=== PATIENT | male | born 1975 | race Two or more races ===

== ENCOUNTER 2021-06-29 10:38 | Inpatient (IN) | payer BC, OTHER ==
[~2021-06-29] VITALS: Ht 185.4 cm; Wt 116.0 kg
[2021-06-29] MEDS ORDERED: DexAMETHasone SOD PHOS 10MG/1ML VIAL INJ IV ONE (11:30)
[2021-06-29] MEDS ORDERED: ACETAMINOPHEN 325 MG TAB PO ONE (11:30)
[2021-06-29 11:49] LABS: Basophils # (auto) 0 10 ^3/uL (0-0.2); Basophils % (auto) 0.6 % (0.0-2.0); Eosinophils # (auto) 0 10 ^3/uL (0-0.8); Hematocrit 41.4 % (41.0-53.0); Hemoglobin 14.3 g/dL (13.5-17.5); Lymphocytes # (auto) 0.8 10 ^3/uL (0.4-5.4); Lymphocytes % (auto) 22.8 % (10.0-50.0); Mean Corpuscular Hemoglobin 30.8 pg (28.0-32.0); Mean Corpuscular Hgb Conc. 34.6 g/dL (32.0-36.0); Monocytes # (auto) 0.6 10 ^3/uL (0-1.3); Monocytes % (auto) 16.7 % (0.0-12.0); Neutrophils # (auto) 2.1 10 ^3/uL (1.6-8.6); Neutrophils % (auto) 59.9 % (37.0-80.0); Nucleated Red Blood Cells % 0.3 %; Red Blood Cells 4.65 10^6/uL (4.5-5.90); Red Cell Distribution Width 14.3 % (11.8-14.3); White Blood Cell 3.5 10^3/uL (4.4-10.8)
[2021-06-29 11:59] LABS: INR 1.03 (0.9-1.15); Partial Thromboplastin Time 34.1 sec (23.6-33.0)
[2021-06-29 12:03] LABS: Albumin 3.1 g/dL (3.4-5.0); Calcium 8.3 mg/dL (8.5-10.1); Magnesium 2.7 mg/dL (1.6-2.6); Potassium 3.7 mmol/L (3.5-5.1)
[2021-06-29 12:08] LABS: BUN/Creatinine Ratio 9.3; Bilirubin, Total 0.4 mg/dL (0.2-1.0); Total Protein 7.4 g/dL (6.4-8.2)
[2021-06-29] MEDS ORDERED: IOHEXOL 350 MG/ML 100ML IJ ONE (13:14)
[2021-06-29] MEDS ORDERED: MORPHINE SULFATE INJECTION 2 MG/ML SYRG IV PRN ×3 (14:30→16:30)
[2021-06-29] MEDS ORDERED: NITROGLYCERIN 0.4 MG SL TAB SL PRN ×2 (14:30→16:30)
[2021-06-29] MEDS ORDERED: HCTZ 25 MG TAB PO ONE (16:15)
[2021-06-29] MEDS ORDERED: hydrALAZINE HCL 20 MG/ML VL IV PRN (16:15)
[2021-06-29] MEDS ORDERED: REMDESIVIR PER PHARMACY 0 ML IV SCH (16:15)
[2021-06-29] MEDS ORDERED: ACETAMINOPHEN 500 MG TAB PO PRN (16:15)
[2021-06-29] MEDS ORDERED: ALUM & MAG HYDROX-SIMETH LIQ(MAALOX) 30 ML PO PRN (16:30)
[2021-06-29] MEDS ORDERED: ACETAMINOPHEN 325 MG TAB PO PRN (16:30)
[2021-06-29] MEDS ORDERED: HYDROcodone-ACET 5/325MG TAB PO PRN (16:30)
[2021-06-29] MEDS ORDERED: METOCLOPRAMIDE HCL 5MG/ml INJ 2ml VIAL IV PRN (16:30)
[2021-06-29] MEDS ORDERED: LORazepam 0.5 MG TAB PO PRN (16:30)
[2021-06-29] MEDS ORDERED: DOCUSATE SOD 100 MG CAP PO PRN (16:30)
[2021-06-29 16:52] LABS: Cholesterol 113 mg/dL (< 200)
[2021-06-29 16:55] LABS: HDL Cholesterol 33 mg/dL (40-59); LDL Cholesterol 61 mg/dL (< 100); Triglycerides 119 mg/dL (< 150)
[2021-06-29 16:58] LABS: Thyroid Stimulating Hormone 1.7 uIU/mL (0.358-3.74)
[2021-06-29 17:30] LABS: Urine Bacteria NONE SEEN /hpf (None Seen); Urine Blood TRACE /uL (Negative); Urine Specific Gravity 1.023 (1.001-1.035); Urine WBC <1 /hpf (0 - 3)
[2021-06-29 17:40] LABS: Alcohol, Urine < 3.0 mg/dL (0-10); Amphetamine Screen, Urine NEGATIVE (NEGATIVE); Barbiturate Scree,Urine NEGATIVE (NEGATIVE); Benzodiazephine Screen, Urine NEGATIVE (NEGATIVE); Cannabinoid Screen, Urine NEGATIVE (NEGATIVE); Cocaine Screen, Urine NEGATIVE (NEGATIVE); Opiate Scree,Urine NEGATIVE (NEGATIVE); Phencyclidine Screen, Urine NEGATIVE (NEGATIVE)
[2021-06-29] MEDS ORDERED: REMDESIVIR 200 MG in NS 210ml LOADING DOSE ADULT IV ONE (18:00)
[2021-06-29] MEDS: BUDESONIDE (INHALATION) 180 MCG IH IN SCH (18:33)
[2021-06-29] MEDS: ALBUTEROL SULF HFA 90MCG INH 200DOSE IN PRN (20:18)
[2021-06-29 22:00] VITALS: BP 132/92
[2021-06-29] MEDS: DOXYCYCLINE 100MG/250ML 250 ML IV SCH (23:13)
[2021-06-29] MEDS: ENOXAPARIN SOD 40 MG/0.4 ML SYRINGE SC SCH (23:14)
[2021-06-29] MEDS: ATORVASTATIN 20 MG TAB PO SCH (23:14)
[2021-06-30 00:50] VITALS: BP 146/93
[2021-06-30 05:00] VITALS: BP 135/80
[2021-06-30] MEDS: BUDESONIDE (INHALATION) 180 MCG IH IN SCH ×2 (05:53→22:59)
[2021-06-30] MEDS: ALBUTEROL SULF HFA 90MCG INH 200DOSE IN PRN (05:54)
[2021-06-30] MEDS: IVERMECTIN 3 MG TAB PO SCH (08:21)
[2021-06-30 08:32] LABS: Calcium 8.6 mg/dL (8.5-10.1); Hematocrit 42.4 % (41.0-53.0); Hemoglobin 14.4 g/dL (13.5-17.5); Mean Corpuscular Hemoglobin 30.4 pg (28.0-32.0); Mean Corpuscular Hgb Conc. 34.1 g/dL (32.0-36.0); Mean Corpuscular Volume 89.3 fL (80.0-100.0); Potassium 3.9 mmol/L (3.5-5.1); Red Blood Cells 4.75 10^6/uL (4.5-5.90); Red Cell Distribution Width 14.8 % (11.8-14.3); White Blood Cell 3.2 10^3/uL (4.4-10.8)
[2021-06-30 08:34] LABS: INR 0.98 (0.9-1.15); Partial Thromboplastin Time 32.4 sec (23.6-33.0)
[2021-06-30 08:38] LABS: BUN/Creatinine Ratio 16.5; Bilirubin, Total 0.4 mg/dL (0.2-1.0); Phosphorus 2.6 mg/dL (2.5-4.90); Total Protein 7.4 g/dL (6.4-8.2); Uric Acid 4.1 mg/dL (3.5-7.2)
[2021-06-30 08:45] LABS: Basophils % (manual) 0 (0.0-2.0); Blast Cells 0; Eosinophils % (manual) 0 (0-7); Metamyelocytes % 0; Myelocytes % 0; Promyelocytes % 0; Reactive Lymphocytes 0
[2021-06-30 09:00] VITALS: BP 138/89
[2021-06-30] MEDS: DOXYCYCLINE 100MG/250ML 250 ML IV SCH ×2 (09:42→22:26)
[2021-06-30] MEDS: ZINC SULFATE 220mg CAP or TAB PO SCH (09:42)
[2021-06-30] MEDS: DexAMETHasone SOD PHOS 10MG/1ML VIAL INJ IV SCH (09:42)
[2021-06-30] MEDS: ASPirin 81 mg TAB PO SCH (09:42)
[2021-06-30] MEDS: HCTZ 25 MG TAB PO SCH (09:43)
[2021-06-30] MEDS: CHOLECALCIFEROL (VITD3) 2,000 UNIT CAP/TAB PO SCH (09:44)
[2021-06-30] MEDS: ENOXAPARIN SOD 40 MG/0.4 ML SYRINGE SC SCH ×2 (09:44→22:27)
[2021-06-30] MEDS: ASCORBIC ACID 1,000 MG TAB PO SCH (09:44)
[2021-06-30] MEDS: FAMOTIDINE 20 MG TAB PO SCH (12:08)
[2021-06-30 12:24] LABS: Band Neutrophils % (manual) 3; Lymphocytes % (manual) 19 (10.0-50.0); Monocytes % (manual) 12 (0-12)
[2021-06-30 13:00] VITALS: BP 141/94
[2021-06-30] MEDS ORDERED: REMDESIVIR 100mg 100 MG in SODIUM CHL 0.9% 230 ML IV SCH (15:00)
[2021-06-30 17:00] VITALS: BP 144/89
[2021-06-30 22:00] VITALS: BP 148/78
[2021-06-30] MEDS: ATORVASTATIN 20 MG TAB PO SCH (22:26)
[2021-07-01] MEDS: ALBUTEROL SULF HFA 90MCG INH 200DOSE IN PRN ×2 (00:44→07:58)
[2021-07-01 05:00] VITALS: BP 151/92
[2021-07-01] MEDS: BUDESONIDE (INHALATION) 180 MCG IH IN SCH (07:58)
[2021-07-01 08:27] LABS: Potassium 3.8 mmol/L (3.5-5.1)
[2021-07-01 08:37] LABS: BUN/Creatinine Ratio 26.3; Bilirubin, Total 0.3 mg/dL (0.2-1.0); Calcium 8.5 mg/dL (8.5-10.1); Magnesium 3.1 mg/dL (1.6-2.6); Total Protein 6.5 g/dL (6.4-8.2)
[2021-07-01 08:41] VITALS: BP 137/88
[2021-07-01 08:46] LABS: Basophils # (auto) 0 10 ^3/uL (0-0.2); Basophils % (auto) 0.6 % (0.0-2.0); Eosinophils # (auto) 0 10 ^3/uL (0-0.8); Eosinophils % (auto) 0.1 % (0.0-7.0); Hematocrit 41.6 % (41.0-53.0); Hemoglobin 14.2 g/dL (13.5-17.5); Lymphocytes # (auto) 0.9 10 ^3/uL (0.4-5.4); Lymphocytes % (auto) 15.8 % (10.0-50.0); Mean Corpuscular Hemoglobin 30.7 pg (28.0-32.0); Mean Corpuscular Hgb Conc. 34.2 g/dL (32.0-36.0); Mean Corpuscular Volume 89.8 fL (80.0-100.0); Neutrophils # (auto) 3.6 10 ^3/uL (1.6-8.6); Neutrophils % (auto) 65.1 % (37.0-80.0); Nucleated Red Blood Cells % 0.4 %; Red Blood Cells 4.63 10^6/uL (4.5-5.90); Red Cell Distribution Width 14.8 % (11.8-14.3); White Blood Cell 5.5 10^3/uL (4.4-10.8)
[2021-07-01 08:49] LABS: Monocytes % (auto) 18.4 % (0.0-12.0)
[2021-07-01] MEDS: DexAMETHasone SOD PHOS 10MG/1ML VIAL INJ IV SCH (09:46)
[2021-07-01] MEDS: DOXYCYCLINE 100MG/250ML 250 ML IV SCH (09:46)
[2021-07-01] MEDS: ENOXAPARIN SOD 40 MG/0.4 ML SYRINGE SC SCH (09:47)
[2021-07-01] MEDS: ASPirin 81 mg TAB PO SCH (09:47)
[2021-07-01] MEDS: ASCORBIC ACID 1,000 MG TAB PO SCH (09:48)
[2021-07-01] MEDS: IVERMECTIN 3 MG TAB PO SCH (09:48)
[2021-07-01] MEDS: CHOLECALCIFEROL (VITD3) 2,000 UNIT CAP/TAB PO SCH (09:48)
[2021-07-01] MEDS: ZINC SULFATE 220mg CAP or TAB PO SCH (09:49)
[2021-07-01] MEDS: FAMOTIDINE 20 MG TAB PO SCH (09:49)
[2021-07-01] MEDS: HCTZ 25 MG TAB PO SCH (09:50)
[2021-07-01] MEDS ORDERED: ALBUAER3 IN (12:02)
[2021-07-01] MEDS ORDERED: AZITTAB PO (12:02)
[2021-07-01 12:37] VITALS: BP 154/100
[2021-07-01 13:24] VITALS: BP 145/99
== END 2021-07-01 15:15 | disposition home or self-care (01) | DRG 177 ==
LOC: ER 10:38 → TELE 14:30 → TELE-EAST 20:15
PROVIDERS: ADMIT Hospitalist; ATTEND Internal Medicine
PROC: XW033E5 Introduction of Remdesivir Anti-infective into Peripheral Vein, Percutaneous Approach, New Technology Group 5 (ICD-10-PCS; principal; 2021-06-29)
DX: U07.1 COVID-19 (principal); J12.82 Pneumonia due to coronavirus disease 2019; J96.01 Acute respiratory failure with hypoxia; Z23 Encounter for immunization; E78.5 Hyperlipidemia, unspecified; E66.01 Morbid (severe) obesity due to excess calories; D89.839 Cytokine release syndrome, grade unspecified; E88.09 Other disorders of plasma-protein metabolism, not elsewhere classified; E88.81 Metabolic syndrome and other insulin resistance; I10 Essential (primary) hypertension; R53.81 Other malaise; R74.01 Elevation of levels of liver transaminase levels; Z68.33 Body mass index [BMI] 33.0-33.9, adult
CPT/HCPCS: 36415; 36600; 71045; 71275; 80053; 80061; 80307; 81001; 82306; 82728; 82805; 83036; 83605; 83615; 83735; 83880; 84100; 84443; 84484; 84550; 85007; 85025; 85027; 85379; 85610; 85730; 86141; 87040; 87086; 87426; 87804; 93005; 94640; 96365; 96375; G0378; J1100; J3490

== ENCOUNTER 2021-10-09 13:04 | Emergency (ER) | payer OTHER ==
[~2021-10-09] VITALS: Ht 185.4 cm; Wt 104.3 kg
[~2021-10-09 13:04] MED LIST: ALBUAER3 IN; AZITTAB PO
[2021-10-09] MEDS ORDERED: SULF800T7 PO ×2 (17:07→17:24)
[2021-10-09] MEDS ORDERED: LIDOCAINE 1%HCL (LOCAL ANESTH) 10 ML MDV ONE (17:21)
[2021-10-09] MEDS ORDERED: ACET-1158 PO (17:24)
[2021-10-09 17:41] VITALS: BP 171/101
[2021-10-09] MEDS ORDERED: cefTRIAXone SOD 1,000 MG VL IM ONE (17:45)
== END 2021-10-09 18:25 | disposition home or self-care (01) ==
LOC: ER 13:04
DX: L03.012 Cellulitis of left finger (principal); I10 Essential (primary) hypertension
CPT/HCPCS: 10060; 96372; 99283; J0696; J2001

== ENCOUNTER 2024-05-06 13:05 | Inpatient (IN) | payer MEDICAID, OTHER ==
[~2024-05-06] VITALS: Ht 182.9 cm; Wt 117.0 kg
[~2024-05-06 13:05] MED LIST changes: +ACET500T58 PO; +SULF800T23 PO
--- NOTE | 2024-05-06 13:26 | ED.PDOC ---
History of Present Illness HPI Comments HPI: Poor Historian. 49 y.o male presents to the ED for an evaluation of HTN. Patient reports he went to get a regular physical and blood pressure read high. Patient is currently as ymptomatic but presents today to get evaluated for his blood pressure as he stated no history of HTN or any mediation use at this time. Patient denies any use of drugs. Patient denies any allergies Vital Signs BP: 240/141 on left arm and 239/153 on right arm HR: 84 Temp: 97.7 F SPO2: 97% RA RR: 16 Past medical history: Herron's Palsy Past surgical history: Denies REVIEW OF SYSTEMS: CONSTITUTIONAL: Denies acute: fever, diaphoresis, chills, generalized weakness. HEAD: Denies acute: headache, photophobia Eyes: Denies acute: Double vision, vision loss, eye pain, eye discharge. EARS: Denies acute: tinnitus, hearing loss, ear discharge, ear pain, THROAT: Denies acute: sore throat, swelling, difficulty swallowing , pain with swallowing, change in voice. NECK: Denies acute: neck pain, neck swelling, stiff neck. HEART: Denies acute : chest pain, palpitations, LUNGS: Denies acute: SOB, wheezing, cough, hemoptysis ABDOMEN: Denies acute: abdominal pain, Nausea, Vomiting, diarrhea, melena , hematemesis, hematochezia SKIN: Denies acute: rash, redness, lesions, itchiness. EXTREMITIES: Denies acute: calf pain, numbness, tingling, weakness, denies pain in extremity. Denies acute: Low back pain. Neuro: Denies acute: focal neurological deficit, motor or sensory focal neurological deficit, tremors, seizure like activity, confusion, dizziness, change in mental status, loss of bowel or bladder function, cauda equina like symptoms. : Denies acute: dysuria, hematuria, flank pain, increase in urinary frequency. PSYCH: Denies acute: hallucination, suicidal ideation, homicidal ideation. PHYSICAL EXAM: General: no acute distress, awake and alert. Head: normocephalic, atraumatic. Neck: supple, trachea is midline, no swelling. Throat: Normal phonation. Eyes:, no erythema, no purulent discharge, no proptosis, no icterus. Heart: regular rate, regular rhythm, no significant murmur appreciated. Lungs: no apparent respiratory distress, Able to speak in full sentences. No wheezing, no rhonchi, no crackles. No stridors Clear to auscultation bilaterally. Abdomen: non tender to palpation, non distended, soft, no guarding, no rebound, + bowel sounds. Neuro: Awake, Alert, oriented to name, self, situation, follows commands GCS=15. Speech is normal. Skin: no petechia, no purpura, no cyanosis, non-pale, not jaundice. Lower extremities: --no - Pitting edema no deformity, no focal swelling, no calf TTP. Makes eye contact. moves all four extremities. Face: no apparent facial droop. Ambulating in the ED independently. Time Seen by MD: 13:20 Primary Care Provider: NONE Reviewed Notes: Nurses Notes, Allergies Allergies: Coded Allergies: NO KNOWN ALLERGIES (Unverified , 06/29/21) Home Meds Active Scripts Acetaminophen (Acetaminophen) 500 Mg Tab, 500 MG PO QIDP, #30 TAB 0 Refills Prov:FORD ALCOCER 10/09/21 Sulfamethoxazole W/Trimethopri (Trimethoprim/Sulfamethoxa) 1 Tab Tab, 1 TAB PO BID for 7 Days, #14 TAB 0 Refills Prov:FORD ALCOCER 10/09/21 Azithromycin (Zithromax Z-Kenny) 250 Mg Tab, 250 MG PO UD for 5 Days, #6 TAB Prov:EAMON JAIN HEDIS COORDINATOR 07/01/21 Albuterol Sulfate (VENTOLIN MDI) 90 Mcg Ih, 180 MCG IN TIDPRN PRN for 30 Days, #1 INH Prov:EAMON JAIN HEDIS COORDINATOR 07/01/21 Information Source: Patient Mode of Arrival: Ambulatory Past Medical History Past Medical History (Other): Herron's palsy Surgical History: Denies all surgeries Family History Family History: Unknown Social History Smoker: Non-Smoker Alcohol: Denies ETOH Use Drugs: Denies Drug Use Lives In: Home Was a procedure done? Was a procedure done?: No Differential Dx Considerations may include: DDX include renal disease, thyroid disease, electrolyte abnormality, increased salt intake, medications non-compliance, undiagnosed HTN, Hypertensive crisis, hypertensive urgency., drug toxicity. X-Ray, Labs, Meds, VS Vital Signs Date Time Temp Pulse Resp B/P (MAP) Pulse Ox O2 Delivery O2 Flow Rate FiO2 05/06/24 23:00 94 12 197/111 (139) 96 05/06/24 21:40 82 205/123 05/06/24 21:00 84 16 205/123 (150) 99 05/06/24 20:08 213/120 05/06/24 20:00 76 16 213/120 (151) 98 05/06/24 16:45 202/131 05/06/24 15:26 201/128 05/06/24 15:26 75 16 201/128 (152) 99 206/126 (152) 05/06/24 14:36 219/143 05/06/24 14:22 219/143 05/06/24 14:18 74 17 219/143 (168) 98 05/06/24 14:18 78 16 219/143 (168) 99 05/06/24 13:40 84 17 98 Room Air 05/06/24 13:40 233/127 05/06/24 13:40 98.4 84 17 233/127 (162) 98 98.4 05/06/24 13:33 97.7 84 16 239/153 (181) 97 Lab Test 05/06/24 16:34 05/06/24 15:11 05/06/24 13:43 05/06/24 13:40 Range/Units Troponin I High Sensitivity 17 15 16 </=54 ng/L Urine Color Colorless Yellow Urine Clarity Clear Clear Urine pH 7.0 5.0-9.0 Urine Specific [place] 1.011 1.001-1.035 Urine Protein Negative Negative Urine Ketones Negative Negative Urine Blood Negative Negative /uL Urine Nitrite Negative Negative Urine Bilirubin Negative Negative Urine Urobilinogen Normal Negative mg/dL Urine Leukocyte Esterase Negative Negative /uL Urine RBC 1 0 - 3 /hpf Urine WBC <1 0 - 3 /hpf Urine Squamous Epithelial Cells Few <5 /hpf Urine Bacteria None seen None Seen /hpf Urine Glucose Trace Normal mg/dL Urine Opiates Screen Neg NEGATIVE Urine Fentanyl Screen Neg NEGATIVE Urine Barbiturates Screen Neg NEGATIVE Urine Phencyclidine Screen Neg NEGATIVE Urine Amphetamines Screen Neg NEGATIVE Urine Benzodiazepines Screen Neg NEGATIVE Urine Cocaine Screen Neg NEGATIVE Urine Cannabinoids Screen Neg NEGATIVE White Blood Count 5.4 4.4-10.8 10^3/uL Red Blood Count 4.58 4.5-5.90 10^6/uL Hemoglobin 14.3 13.5-17.5 g/dL Hematocrit 42.2 41.0-53.0 % Mean Corpuscular Volume 92.0 80.0-100.0 fL Mean Corpuscular Hemoglobin 31.2 28.0-32.0 pg Mean Corpuscular Hemoglobin Concent 33.9 32.0-36.0 g/dL Red Cell Distribution Width 14.8 H 11.8-14.3 % Platelet Count 262 140-450 10^3/uL Mean Platelet Volume 9.3 6.9-10.8 fL Neutrophils (%) (Auto) 52.1 37.0-80.0 % Lymphocytes (%) (Auto) 35.2 10.0-50.0 % Monocytes (%) (Auto) 10.8 0.0-12.0 % Eosinophils (%) (Auto) 1.1 0.0-7.0 % Basophils (%) (Auto) 0.8 0.0-2.0 % Neutrophils # (Auto) 2.8 1.6-8.6 10 ^3/uL Lymphocytes # (Auto) 1.9 0.4-5.4 10 ^3/uL Monocytes # (Auto) 0.6 0-1.3 10 ^3/uL Eosinophils # (Auto) 0.1 0-0.8 10 ^3/uL Basophils # (Auto) 0 0-0.2 10 ^3/uL Nucleated Red Blood Cells 0.3 % Sodium Level 141 136-145 mmol/L Potassium Level 4.0 3.5-5.1 mmol/L Chloride Level 108 H 98-107 mmol/L Carbon Dioxide Level 29 20-31 mmol/L Anion Gap 4 L 5-15 Blood Urea Nitrogen 19 9-23 mg/dL Creatinine 1.35 H 0.700-1.30 mg/dL Glomerular Filtration Rate Calc 64 >90 mL/min BUN/Creatinine Ratio 14.1 10.0-20.0 Serum Glucose 109 H 74-106 mg/dL Calcium Level 9.9 8.7-10.4 mg/dL Total Bilirubin 0.3 0.2-1.0 mg/dL Aspartate Amino Transferase (AST) 18 13-40 U/L Alanine Aminotransferase (ALT) 26 7-40 U/L Alkaline Phosphatase 136 H 46-116 U/L B-Type Natriuretic Peptide 22.48 0-100 pg/mL Total Protein 6.8 5.7-8.2 g/dL Albumin 4.4 3.2-4.8 g/dL Current Medications Medications (Trade) Dose Ordered Sig/Elizabeth Route Start Time Stop Time Status Last Admin Nicardipine HCl 250 ml @ 50 mls/hr Q5H IV 05/06/24 20:45 05/07/24 06:27 DC 05/07/24 02:15 Labetalol HCl (Labetalol HCl) 5 mg ONCE ONCE IV 05/06/24 21:15 05/06/24 21:20 DC 05/06/24 21:40 Hydralazine HCl (Apresoline Injection) 10 mg Q6HP PRN IV 05/06/24 22:30 05/07/24 11:14 Clonidine HCl (Catapres Tablet) 0.2 mg Q6HP PRN PO 05/06/24 22:30 05/07/24 12:02 [place] [id number] Ph: [phone] DIAGNOSTIC IMAGING Diagnostic Imaging Report : [id number] Signed PATIENT: ALLAN COOLEY ACCT: [id number] UNIT: [id number] : 1975 LOC: ER ROOM / BED: / AGE / SEX: 49 / M ADM STATUS: REG ER SERVICE 1319 ORDERING PHYSICIAN: HENRY BROCK DO PROCEDURE(s): HWOCT - HEAD WITHOUT CONTRAST REASON: htn crisis ORDER NUMBER(s): [id number], ACCESSION NUMBER(s): [id number] EXAM: CT HEAD WITHOUT CONTRAST HISTORY: htn crisis COMPARISON: CT ANGIO CHEST CONTRAST on DOS: 06/29/21 TECHNIQUE: Axial images of the head were obtained and reformatted in coronal and sagittal planes. All CT scans at this medical facility are performed using dose modulation techniques as appropriate to a performed exam including the following: Automated exposure control was utilized; adjustment of the MA and/or KV according to patient size; and use of iterative reconstruction technique. CT Dose: CTDI volume is 60.6 mGy. Dose-length product is 1092.55 mGy*cm FINDINGS: There is no evidence of acute intracranial hemorrhage, mass, mass effect midline shift. There is no hydrocephalus or extra-axial fluid collection. Dias-white matter differentiation is maintained.. The visualized paranasal sinuses and mastoid air cells are clear. The calvarium is intact. IMPRESSION: 1. No acute intracranial process. HS:Y ATED BY: AMAN SOTOMAYOR MD DICTATED DATE/TIME: 05/06/241356 SIGNED BY: AMAN SOTOMAYOR MD SIGNED DATE/TIME: 05/06/24 135 CC: [place] [id number] Ph: [phone] DIAGNOSTIC IMAGING Diagnostic Imaging Report : [id number] Signed PATIENT: ALLAN COOLEY ACCT: [id number] UNIT: [id number] : 1975 LOC: ER ROOM / BED: / AGE / SEX: 49 / M ADM STATUS: REG ER SERVICE 1319 ORDERING PHYSICIAN: HENRY BROCK DO PROCEDURE(s): CXRP - CHEST PORTABLE REASON: htn crisis ORDER NUMBER(s): [id number], ACCESSION NUMBER(s): [id number] EXAM: XY CHEST PORTABLE TECHNIQUE: Single frontal chest radiograph CLINICAL HISTORY: htn crisis COMPARISON: CHEST PORTABLE on DOS: 06/30/21, CHEST PORTABLE on DOS: 06/29/21 Findings/Impression: Frontal chest radiograph demonstrates no acute osseous or superficial soft tissue abnormalities. The trachea is midline. The cardiac silhouette and mediastinum are within normal limits. No pneumothorax, pleural effusions, or consolidations. ATED BY: VERONICA CARRANZA DO DICTATED DATE/TIME: 05/06/241352 SIGNED BY: VERONICA CARRANZA DO SIGNED DATE/TIME: 05/06/241352 CC: Time of 1ST Reevaluation: 13:23 Reevaluation 1ST: Unchanged Patient Education/Counseling: Diagnosis, Treatment Family Education/Counseling: No Family Present Comments Patient presented with the above HPI.---hypertensive crisis---workup was initiated. patient was found with the above mentioned diagnosis. Patient was given: Labetalol, nitroglycerin, hydralazine,. Patient continued to be hypertensive. Patient was started on a nicardipine drip Patient ED course and VS have been stabilized. Patient has been reassessed in the ED and remained in a stable condition. Pertinent incidental findings were discussed with the patient and/or family. Patient/family voices understanding and is agreeable with plan. Patient has been observed in the ED adequate length of time to insure improvement/stability. patient was admitted to the medicine team for further evaluation and treatment of their presentation. All the reports of any imaging studies that were ordered by myself were reviewed by myself. Departure 1 Departure Time of Disposition: 20:42 Impression: Primary Impression: Hypertensive crisis Disposition: ADMITTED INPATIENT Admit to: Tele Condition: Guarded Discharged With: Self Critical Care Note Critical Care Time?: Yes (55 min-critical care time only) I personally scribed for HENRY BROCK DO ([email or web address]) on 05/06/24 at 13:26. Electronically submitted by Ailyn Ty ([facility]). I personally scribed for HENRY BROCK DO ([email or web address]) on 05/06/24 at 16:28. Electronically submitted by Ailyn Ty ([facility]). I personally scribed for HENRY BROCK DO ([email or web address]) on 05/06/24 at 17:18. Electronically submitted by Ailyn Ty ([facility]). I personally scribed for HENRY BROCK DO ([email or web address]) on 05/06/24 at 20:42. Electronically submitted by Ailyn Ty ([facility]). HENRY BROCK DO May 06, 2024 13:26
[2024-05-06] MEDS: NITROGLYCERIN 0.4 MG SL TAB SL ONE ×2 (13:40→14:36)
--- NOTE | 2024-05-06 13:55 | DVH ---
EXAM: XY CHEST PORTABLE TECHNIQUE: Single frontal chest radiograph CLINICAL HISTORY: htn crisis COMPARISON: CHEST PORTABLE on DOS: 06/30/21, CHEST PORTABLE on DOS: 06/29/21 Findings/Impression: Frontal chest radiograph demonstrates no acute osseous or superficial soft tissue abnormalities. The trachea is midline. The cardiac silhouette and mediastinum are within normal limits. No pneumothorax, pleural effusions, or consolidations.
--- NOTE | 2024-05-06 13:58 | DVH ---
EXAM: CT HEAD WITHOUT CONTRAST HISTORY: htn crisis COMPARISON: CT ANGIO CHEST CONTRAST on DOS: 06/29/21 TECHNIQUE: Axial images of the head were obtained and reformatted in coronal and sagittal planes. All CT scans at this medical facility are performed using dose modulation techniques as appropriate t o a performed exam including the following: Automated exposure control was utilized; adjustment of th e MA and/or KV according to patient size; and use of iterative reconstruction technique. CT Dose: CTDI volume is 60.6 mGy. Dose-length product is 1092.55 mGy*cm FINDINGS: There is no evidence of acute intracranial hemorrhage, mass, mass effect midline shift. There is no h ydrocephalus or extra-axial fluid collection. Dias-white matter differentiation is maintained.. The visualized paranasal sinuses and mastoid air cells are clear. The calvarium is intact. IMPRESSION: 1. No acute intracranial process. HS:Y
[2024-05-06 14:22] LABS: Alanine Aminotransferase 26 U/L (7-40); Albumin 4.4 g/dL (3.2-4.8); Alkaline Phosphatase 136 U/L (46-116); Anion Gap 4 (5-15); Aspartate Aminotransferase 18 U/L (13-40); BUN/Creatinine Ratio 14.1 (10.0-20.0); Basophils # (auto) 0 10 ^3/uL (0-0.2); Basophils % (auto) 0.8 % (0.0-2.0); Blood Urea Nitrogen 19 mg/dL (9-23); Calcium 9.9 mg/dL (8.7-10.4); Carbon Dioxide 29 mmol/L (20-31); Chloride 108 mmol/L (98-107); Eosinophils # (auto) 0.1 10 ^3/uL (0-0.8); Eosinophils % (auto) 1.1 % (0.0-7.0); Glucose 109 mg/dL (74-106); Hematocrit 42.2 % (41.0-53.0); Hemoglobin 14.3 g/dL (13.5-17.5); Lymphocytes # (auto) 1.9 10 ^3/uL (0.4-5.4); Lymphocytes % (auto) 35.2 % (10.0-50.0); Mean Corpuscular Hemoglobin 31.2 pg (28.0-32.0); Mean Corpuscular Hgb Conc. 33.9 g/dL (32.0-36.0); Monocytes # (auto) 0.6 10 ^3/uL (0-1.3); Monocytes % (auto) 10.8 % (0.0-12.0); Neutrophils # (auto) 2.8 10 ^3/uL (1.6-8.6); Neutrophils % (auto) 52.1 % (37.0-80.0); Nucleated Red Blood Cells % 0.3 %; Platelet Count (auto) 262 10^3/uL (140-450); Red Blood Cells 4.58 10^6/uL (4.5-5.90); Red Cell Distribution Width 14.8 % (11.8-14.3); Sodium 141 mmol/L (136-145); Total Protein 6.8 g/dL (5.7-8.2); White Blood Cell 5.4 10^3/uL (4.4-10.8)
[2024-05-06 14:23] LABS: Bilirubin, Total 0.3 mg/dL (0.2-1.0)
[2024-05-06 15:00] LABS: Urine Bacteria None Seen /hpf (None Seen)
[2024-05-06 15:11] LABS: Urine Blood Negative /uL (Negative); Urine Clarity Clear (Clear); Urine Color Colorless (Yellow); Urine Protein, UAD Negative (Negative); Urine Specific Gravity 1.011 (1.001-1.035); Urine Urobilinogen Normal (Negative); Urine WBC <1 /hpf (0 - 3)
[2024-05-06 15:19] LABS: Amphetamine Screen, Urine Neg (NEGATIVE); Barbiturate Scree,Urine Neg (NEGATIVE); Benzodiazephine Screen, Urine Neg (NEGATIVE); Cocaine Screen, Urine Neg (NEGATIVE); Opiate Scree,Urine Neg (NEGATIVE); Phencyclidine Screen, Urine Neg (NEGATIVE)
[2024-05-06 15:20] LABS: Cannabinoid Screen, Urine Neg (NEGATIVE)
[2024-05-06] MEDS: LABETALOL HCL 20 MG/4 ML VL IV ONE ×3 (16:08→21:40)
[2024-05-06] MEDS: hydrALAZINE HCL 20 MG/ML VL IV ONE ×2 (16:45→20:08)
[2024-05-06] MEDS ORDERED: ACETAMINOPHEN 325 MG TAB PO PRN (22:30)
[2024-05-06] MEDS ORDERED: ONDANSETRON HCL 4 MG/2 ML VIAL IV PRN (22:30)
[2024-05-06] MEDS ORDERED: DOCUSATE SOD 100 MG CAP PO PRN (22:30)
[2024-05-06] MEDS ORDERED: HYDROcodone-ACET 5/325MG TAB PO PRN (22:30)
--- NOTE | 2024-05-06 23:04 | DVHHP2 ---
History of Present Illness Reason for Visit: Hypertensive crisis History of Present Illness The patient is a 49-year-old male with past medical history of Herron's palsy and hypertension who presented to [facility] ED with complaint of elevated blood pressure. Patient denies history of hypertension, asymptomatic, but present today with elevated blood pressure, associated headache, not in any medication at this time. Patient was seen and evaluated in the ED, laboratory data shows WBC 5.4, platelets 262, sodium 141, potassium 4.0, BUN 19, creatinine 1.35, glucose 109, BNP 22.48, troponin 16, blood pressure 213/120 trending down to 192/112, heart rate 82, temperature 98.4 F, O2 saturation 99% on room air. Head CT showed no acute intracranial process. Patient was started on nicardipine drip, please see medication orders section in the computer. On my assessment, patient denied chest pain, no dizziness, no palpitation, no shortness of breath, no nausea, no vomiting, no fever, no chills. Patient was admitted for further evaluation and medical management. Past Medical History Herron's Palsy, hypertension Past Surgical History Denies all surgeries Family History Reviewed, noncontributory to the management of this case. Past Social History The patient lives at home, denies smoking, alcohol or illicit drugs abuse. Review of Systems Constitutional: No: Fever, Chills, Sweats, Weakness, Malaise, Other Eyes: No: Pain, Vision change, Conjunctivae inflammation, Eyelid inflammation, Other, Redness ENT: No: Ear pain, Ear discharge, Nose pain, Nose discharge, Nose congestion, Mouth pain, Mouth swelling, Throat pain, Throat swelling, Other Respiratory: No: Cough, Dry, Shortness of breath, SOB with excertion, Wheezing, Hemoptysis, Pleuritic Pain, Sputum, Wheezing, Other Cardiovascular: Other (Hypertension); No: Chest Pain, Palpitations, Orthopnea, Paroxysmal Noc. Dyspnea, Edema, Lt Headedness Gastrointestinal: No: Nausea, Vomiting, Abdominal Pain, Diarrhea, Constipation, Melena, Hematochezia, Other Genitourinary: No Dysuria, No Frequency, No Incontinence, No Hematuria, No Retention, No Other Musculoskeletal: No: other, neck pain, shoulder pain, arm pain, back pain, hand pain, leg pain, foot pain Skin: No: Rash, Lesions, Jaundice, Bruising, Other Neurological: Other (Headache); No: Weakness, Numbness, Incoordination, Change in speech, Confusion, Seizures Allergies: Coded Allergies: NO KNOWN ALLERGIES (Unverified , 06/29/21) Medications Current Medications Medications Dose Ordered Sig/Elizabeth Route Start Time Stop Time Status Last Admin Dose Admin Nicardipine HCl 250 ml @ 50 mls/hr Q5H IV 05/06/24 20:45 Hydralazine HCl 10 mg Q6HP PRN IV 05/06/24 22:30 Clonidine HCl 0.2 mg Q6HP PRN PO 05/06/24 22:30 Metoprolol Tartrate 75 mg BID PO 05/07/24 10:00 Sodium Chloride 10 ml Q8HR IV 05/07/24 06:00 Acetaminophen/ Hydrocodone Bitart 1 tab Q4HP PRN PO 05/06/24 22:30 Ondansetron HCl 4 mg Q4HP PRN IV 05/06/24 22:30 Docusate Sodium 100 mg BIDPRN PRN PO 05/06/24 22:30 Acetaminophen 650 mg Q6HP PRN PO 05/06/24 22:30 Exam Vital Signs Vital Signs Date Time Temp Pulse Resp B/P (MAP) Pulse Ox O2 Delivery O2 Flow Rate FiO2 05/06/24 21:40 82 205/123 05/06/24 21:00 16 99 05/06/24 13:40 Room Air 05/06/24 13:40 98.4 98.4 General Appearance: Alert, Oriented X3, Cooperative, No acute distress HEENT: Atraumatic, PERRLA, EOMI, Mucous membr. moist/pink Respiratory: Clear to auscultation, Normal air movement Cardiovascular: Regular rate, Normal S2, No murmurs Abdominal: Normal bowel sounds, Soft, No tenderness, No hepatospenomegaly, No masses Extremities: No clubbing, No cyanosis, No edema, Normal pulses, No tenderness/swelling Skin: No rashes, No breakdown, No significant lesion Neuro: Normal gait, Normal speech, Strength at 5/5 X4 ext, Normal tone, Sensation intact, Cranial nerves 3-12 NL, Reflexes 2+ Psych/Mental Status: Mental status NL, Mood NL Labs/Xrays Labs Test 05/06/24 16:34 05/06/24 13:43 11/21/24 13:40 Range/Units Troponin I High Sensitivity 17 </=54 ng/L Urine Color Colorless Yellow Urine Clarity Clear Clear Urine pH 7.0 5.0-9.0 Urine Specific [place] 1.011 1.001-1.035 Urine Protein Negative Negative Urine Ketones Negative Negative Urine Blood Negative Negative /uL Urine Nitrite Negative Negative Urine Bilirubin Negative Negative Urine Urobilinogen Normal Negative mg/dL Urine Leukocyte Esterase Negative Negative /uL Urine RBC 1 0 - 3 /hpf Urine WBC <1 0 - 3 /hpf Urine Squamous Epithelial Cells Few <5 /hpf Urine Bacteria None seen None Seen /hpf Urine Glucose Trace Normal mg/dL Urine Opiates Screen Neg NEGATIVE Urine Fentanyl Screen Neg NEGATIVE Urine Barbiturates Screen Neg NEGATIVE Urine Phencyclidine Screen Neg NEGATIVE Urine Amphetamines Screen Neg NEGATIVE Urine Benzodiazepines Screen Neg NEGATIVE Urine Cocaine Screen Neg NEGATIVE Urine Cannabinoids Screen Neg NEGATIVE White Blood Count 5.4 4.4-10.8 10^3/uL Red Blood Count 4.58 4.5-5.90 10^6/uL Hemoglobin 14.3 13.5-17.5 g/dL Hematocrit 42.2 41.0-53.0 % Mean Corpuscular Volume 92.0 80.0-100.0 fL Mean Corpuscular Hemoglobin 31.2 28.0-32.0 pg Mean Corpuscular Hemoglobin Concent 33.9 32.0-36.0 g/dL Red Cell Distribution Width 14.8 H 11.8-14.3 % Platelet Count 262 140-450 10^3/uL Mean Platelet Volume 9.3 6.9-10.8 fL Neutrophils (%) (Auto) 52.1 37.0-80.0 % Lymphocytes (%) (Auto) 35.2 10.0-50.0 % Monocytes (%) (Auto) 10.8 0.0-12.0 % Eosinophils (%) (Auto) 1.1 0.0-7.0 % Basophils (%) (Auto) 0.8 0.0-2.0 % Neutrophils # (Auto) 2.8 1.6-8.6 10 ^3/uL Lymphocytes # (Auto) 1.9 0.4-5.4 10 ^3/uL Monocytes # (Auto) 0.6 0-1.3 10 ^3/uL Eosinophils # (Auto) 0.1 0-0.8 10 ^3/uL Basophils # (Auto) 0 0-0.2 10 ^3/uL Nucleated Red Blood Cells 0.3 % Sodium Level 141 136-145 mmol/L Potassium Level 4.0 3.5-5.1 mmol/L Chloride Level 108 H 98-107 mmol/L Carbon Dioxide Level 29 20-31 mmol/L Anion Gap 4 L 5-15 Blood Urea Nitrogen 19 9-23 mg/dL Creatinine 1.35 H 0.700-1.30 mg/dL Glomerular Filtration Rate Calc 64 >90 mL/min BUN/Creatinine Ratio 14.1 10.0-20.0 Serum Glucose 109 H 74-106 mg/dL Calcium Level 9.9 8.7-10.4 mg/dL Total Bilirubin 0.3 0.2-1.0 mg/dL Aspartate Amino Transferase (AST) 18 13-40 U/L Alanine Aminotransferase (ALT) 26 7-40 U/L Alkaline Phosphatase 136 H 46-116 U/L B-Type Natriuretic Peptide 22.48 0-100 pg/mL Total Protein 6.8 5.7-8.2 g/dL Albumin 4.4 3.2-4.8 g/dL PATIENT: ALLAN COOLEY ACCT: [id number] UNIT: [id number] : 1975 LOC: ER ROOM / BED: / AGE / SEX: 49 / M ADM STATUS: REG ER SERVICE 1319 ORDERING PHYSICIAN: HENRY BROCK DO PROCEDURE(s): HWOCT - HEAD WITHOUT CONTRAST REASON: htn crisis ORDER NUMBER(s): [id number], ACCESSION NUMBER(s): [id number] EXAM: CT HEAD WITHOUT CONTRAST HISTORY: htn crisis COMPARISON: CT ANGIO CHEST CONTRAST on DOS: 06/29/21 TECHNIQUE: Axial images of the head were obtained and reformatted in coronal and sagittal planes. All CT scans at this medical facility are performed using dose modulation techniques as appropriate to a performed exam including the following: Automated exposure control was utilized; adjustment of the MA and/or KV according to patient size; and use of iterative reconstruction technique. CT Dose: CTDI volume is 60.6 mGy. Dose-length product is 1092.55 mGy*cm FINDINGS: There is no evidence of acute intracranial hemorrhage, mass, mass effect midline shift. There is no hydrocephalus or extra-axial fluid collection. Dias-white matter differentiation is maintained.. The visualized paranasal sinuses and mastoid air cells are clear. The calvarium is intact. IMPRESSION: 1. No acute intracranial process. ORDERING PHYSICIAN: HENRY BROCK DO PROCEDURE(s): CXRP - CHEST PORTABLE REASON: htn crisis ORDER NUMBER(s): [id number], ACCESSION NUMBER(s): [id number] EXAM: XY CHEST PORTABLE TECHNIQUE: Single frontal chest radiograph CLINICAL HISTORY: htn crisis COMPARISON: CHEST PORTABLE on DOS: 06/30/21, CHEST PORTABLE on DOS: 06/29/21 Findings/Impression: Frontal chest radiograph demonstrates no acute osseous or superficial soft tissue abnormalities. The trachea is midline. The cardiac silhouette and mediastinum are within normal limits. No pneumothorax, pleural effusions, or consolidations. Assessment/Plan Assessment/Plan Hypertensive crisis Headache Morbid obesity Acute renal injury Plan 1. Admit to telemetry unit 2. Breathing treatment 3. Pain control management 4. Management of fluids and electrolytes 5. Consultation for cardiology/hospitalist 6. Diagnostic tests head CT 7. DVT prophylaxis-on SCDs 8. Repeat labs CBC, CMP in a.m. 9. Continue with current medical management 10. Treatment plan discussed with patient and RN. Patient verbalized understanding. Plan discussed with: Patient, Other (RN) My Orders Orders - NANDO SALDIVAR DNP Procedure Category Date Status Time Hydralazine Injection PHA 05/06/24 In Process (Apresoline Inject 22:30 Clonidine Hcl Tablet PHA 05/06/24 In Process (Catapres Tablet) 22:30 Metoprolol Tartrate PHA 05/07/24 In Process Tablet (Lopressor Ta 10:00 * Cardiology Consult CONS 05/06/24 Transmitted 22:27 Allergies VALERY 05/06/24 In Process 22:27 Code Status CODE 05/06/24 Transmitted 22:27 Sodium Chloride Lock PHA 05/07/24 In Process (Saline Lock Ns) 06:00 Oxygen Per Hour RT 05/06/24 Transmitted 22:27 Hydrocodone-Acet PHA 05/06/24 In Process 5/325mg Tab ([place] 22:30 Ondansetron Hcl PHA 05/06/24 In Process (Zofran) 22:30 Docusate Sodium PHA 05/06/24 In Process Capsule (Colace 22:30 Complete Blood Count LAB 05/07/24 Verified 04:00 Comprehensive LAB 05/07/24 Verified Metabolic Panel 04:00 Cardiac DIET 05/07/24 Transmitted Diet-2gna,Lofat,Lochol Breakfast Condition: Serious VALERY 05/06/24 In Process 22:27 Acetaminophen Tablet PHA 05/06/24 In Process (Tylenol Tablet) 22:30 Bedrest With Bathroom VALERY 05/06/24 In Process Privileg 22:27 Sequential VALERY 05/06/24 In Process Compression Device Problem List: (1) Hypertensive crisis (2) Headache (3) Morbid obesity (4) Acute renal injury Date of Service: May 06, 2024 Billing Provider: NANDO SALDIVAR DNP Common Visit Codes: [id number] INP/OBS CARE (HIGH) NANDO SALDIVAR DNP May 06, 2024 23:04
[2024-05-06] MEDS ORDERED: NITROGLYCERIN 0.4 MG SL TAB SL PRN (23:15)
[2024-05-06] MEDS ORDERED: MORPHINE SULFATE INJ 2 MG/ml SYRG IV PRN (23:15)
[2024-05-07] VITALS: PULSE 82; RESP 18; O2SAT 96
[2024-05-07 04:47] LABS: Basophils # (auto) 0.1 10 ^3/uL (0-0.2); Basophils % (auto) 0.9 % (0.0-2.0); Eosinophils # (auto) 0.1 10 ^3/uL (0-0.8); Eosinophils % (auto) 1.1 % (0.0-7.0); Hemoglobin 14.1 g/dL (13.5-17.5); Lymphocytes # (auto) 1.7 10 ^3/uL (0.4-5.4); Lymphocytes % (auto) 26.9 % (10.0-50.0); Mean Corpuscular Hgb Conc. 33.5 g/dL (32.0-36.0); Mean Corpuscular Volume 92.6 fL (80.0-100.0); Monocytes # (auto) 0.6 10 ^3/uL (0-1.3); Monocytes % (auto) 8.7 % (0.0-12.0); Neutrophils % (auto) 62.4 % (37.0-80.0); Platelet Count (auto) 258 10^3/uL (140-450); Red Blood Cells 4.54 10^6/uL (4.5-5.90); Red Cell Distribution Width 14.6 % (11.8-14.3); White Blood Cell 6.4 10^3/uL (4.4-10.8)
[2024-05-07 05:08] LABS: Alanine Aminotransferase 23 U/L (7-40); Albumin 4.3 g/dL (3.2-4.8); Alkaline Phosphatase 121 U/L (46-116); Anion Gap 9 (5-15); Aspartate Aminotransferase 17 U/L (13-40); BUN/Creatinine Ratio 10.7 (10.0-20.0); Blood Urea Nitrogen 12 mg/dL (9-23); Calcium 9.4 mg/dL (8.7-10.4); Carbon Dioxide 22 mmol/L (20-31); Chloride 107 mmol/L (98-107); Glucose 199 mg/dL (74-106); Potassium 3.3 mmol/L (3.5-5.1); Sodium 138 mmol/L (136-145)
[2024-05-07 05:09] LABS: Bilirubin, Total 0.6 mg/dL (0.2-1.0); Total Protein 6.8 g/dL (5.7-8.2)
[2024-05-07] MEDS: SODIUM CHLOR 0.9% PF (SALINE LOCK) 10ML VIAL/SYR IV SCH (06:24)
[2024-05-07 07:57] VITALS: PULSE 70; RESP 16; O2SAT 96
[2024-05-07 08:53] LABS: Magnesium 2.2 mg/dL (1.6-2.6)
[2024-05-07] MEDS: METOPROLOL TARTRATE 25 MG TAB PO SCH (09:38)
--- NOTE | 2024-05-07 09:42 | DVHINCON2 ---
[facility] 05/07/24 0942: Date Seen: May 07, 2024 Referring Physician FILI Bauman Reason for Consultation Hypertensive urgency History of Present Illness This is a 49-year-old male patient who presents to emergency room with chief complaint of elevated blood pressure. The patient reports that he was at a clinic getting a physical done for a new job when staff at that clinic told him his blood pressure was too high and that he needed to come to the emergency room. Upon emergency room arrival, the patient's blood pressure was noted to be at 240/141. The patient denies any cardiac symptoms. The patient also denies any headache or visual disturbances. No twelve lead electrocardiogram was obtained in the emergency room when the patient was admitted. A twelve lead electrocardiogram was ordered at time of assessment and reveals normal sinus rhythm with nonspecific ST segment depression to inferior leads. Initial troponin level of 16ng/L with flat trend thereafter. Significant past medical history includes hypertension and Herron's palsy. The patient denies taking any antihypertensive medications at home. He states he has not seen a primary care physician in over two years. Past Medical History Past medical history reviewed. No other significant than mentioned above. Past Surgical History Patient denies all previous surgeries Family History: Diabetes mellitus G8 MOTHER Hypertension G8 MOTHER Family History Family history reviewed. Social History Denies the use of tobacco, alcohol or illicit drugs. Allergies: Coded Allergies: NO KNOWN ALLERGIES (Unverified , 06/29/21) Home Meds Active Scripts Acetaminophen (Acetaminophen) 500 Mg Tab, 500 MG PO QIDP, #30 TAB 0 Refills Prov:FORD ALCOCER 10/09/21 Sulfamethoxazole W/Trimethopri (Trimethoprim/Sulfamethoxa) 1 Tab Tab, 1 TAB PO BID for 7 Days, #14 TAB 0 Refills Prov:FORD ALCOCER 10/09/21 Azithromycin (Zithromax Z-Kenny) 250 Mg Tab, 250 MG PO UD for 5 Days, #6 TAB Prov:EAMON JAIN NP 07/01/21 Albuterol Sulfate (VENTOLIN MDI) 90 Mcg Ih, 180 MCG IN TIDPRN PRN for 30 Days, #1 INH Prov:EAMON JAIN SCREEN ROOM OPERATOR 07/01/21 Home Meds Home medications reviewed. Current Medications Current Medications Medications (Trade) Dose Ordered Sig/Elizabeth Route PRN Reason Start Time Stop Time Status Last Admin Nicardipine HCl 250 ml @ 50 mls/hr Q5H IV 05/06/24 20:45 05/07/24 06:27 DC 05/07/24 02:15 Hydralazine HCl (Apresoline Injection) 10 mg Q6HP PRN IV SBP>150 05/06/24 22:30 Clonidine HCl (Catapres Tablet) 0.2 mg Q6HP PRN PO SBP>160 05/06/24 22:30 Metoprolol Tartrate (Lopressor Tablet) 75 mg BID PO 05/07/24 10:00 05/07/24 09:38 Sodium Chloride (Saline Lock Ns) 10 ml Q8HR IV 05/07/24 06:00 05/07/24 06:24 Acetaminophen/ Hydrocodone Bitart ([place] 5/325MG Tab) 1 tab Q4HP PRN PO MODERATE PAIN (4-6 PAIN SCALE) 05/06/24 22:30 Ondansetron HCl (Zofran) 4 mg Q4HP PRN IV NAUSEA / VOMITING 05/06/24 22:30 Docusate Sodium (Colace Capsule) 100 mg BIDPRN PRN PO FOR CONSTIPATION 05/06/24 22:30 Acetaminophen (Tylenol Tablet) 650 mg Q6HP PRN PO PAIN SCALE 1-3 OR TEMP>100.4 05/06/24 22:30 Nitroglycerin (Ntrostat Sublingual) 0.4 mg Q5MINP PRN SL FOR CHEST PAIN 05/06/24 23:15 Morphine Sulfate 2 mg Q30M PRN IV FOR CHEST PAIN 05/06/24 23:15 Review of Systems Constitutional: No symptom reported Ears, Nose, & Throat: No symptom reported Eyes: No symptom reported Neurological: No symptoms reported Pulmonary/Respiratory: No symptoms reported Cardiovascular: No symptom reported Gastrointestinal: No symptom reported Genitourinary: No symptom reported Musculoskeletal: No symptom reported Skin: No symptom reported Psychiatric: No symptom reported Endocrine: No symptom reported Hematologic/Lymphatic: No symptom reported Vital Signs Vital Signs Date Time Temp Pulse Resp B/P (MAP) Pulse Ox O2 Delivery O2 Flow Rate FiO2 05/07/24 09:38 80 175/86 05/07/24 08:00 98.3 16 96 98.3 05/07/24 07:57 Nasal Cannula* 2 28 Physical Exam General Appearance: Cooperative. Obese Pulmonary/Respiratory: Clear, bilateral breaths sounds. Cardiovascular/Chest: Regular rate and rhythm. Peripheral Pulses: 2+ Radial (R). 2+ Radial (L). 2+ Pedal (R). 2+ Pedal (L) Abdominal Exam: Normal bowel sounds. Ankle Exam: Negative ankle edema Lower extremities: Negative lower extremity edema Neuro/Mental Status: A/OX4, coherent. Thoughts/Psych: Normal thought pattern. Appropriate mood and affect. Good judgment and insight. Appearance: No acute distress. Skin Exam: Normal inspection. Normal color. Warm and dry. Labs/Diagnostic Data Labs Test 05/07/24 04:12 05/06/24 16:34 05/06/24 13:43 05/06/24 13:40 Range/Units White Blood Count 6.4 4.4-10.8 10^3/uL Red Blood Count 4.54 4.5-5.90 10^6/uL Hemoglobin 14.1 13.5-17.5 g/dL Hematocrit 42.0 41.0-53.0 % Mean Corpuscular Volume 92.6 80.0-100.0 fL Mean Corpuscular Hemoglobin 31.0 28.0-32.0 pg Mean Corpuscular Hemoglobin Concent 33.5 32.0-36.0 g/dL Red Cell Distribution Width 14.6 H 11.8-14.3 % Platelet Count 258 140-450 10^3/uL Mean Platelet Volume 9.2 6.9-10.8 fL Neutrophils (%) (Auto) 62.4 37.0-80.0 % Lymphocytes (%) (Auto) 26.9 10.0-50.0 % Monocytes (%) (Auto) 8.7 0.0-12.0 % Eosinophils (%) (Auto) 1.1 0.0-7.0 % Basophils (%) (Auto) 0.9 0.0-2.0 % Neutrophils # (Auto) 4.0 1.6-8.6 10 ^3/uL Lymphocytes # (Auto) 1.7 0.4-5.4 10 ^3/uL Monocytes # (Auto) 0.6 0-1.3 10 ^3/uL Eosinophils # (Auto) 0.1 0-0.8 10 ^3/uL Basophils # (Auto) 0.1 0-0.2 10 ^3/uL Nucleated Red Blood Cells 0.0 % Sodium Level 138 136-145 mmol/L Potassium Level 3.3 L 3.5-5.1 mmol/L Chloride Level 107 98-107 mmol/L Carbon Dioxide Level 22 20-31 mmol/L Anion Gap 9 5-15 Blood Urea Nitrogen 12 9-23 mg/dL Creatinine 1.12 0.700-1.30 mg/dL Glomerular Filtration Rate Calc 80 >90 mL/min BUN/Creatinine Ratio 10.7 10.0-20.0 Serum Glucose 199 H 74-106 mg/dL Hemoglobin A1c 6.9 H <5.7 % A1C Calcium Level 9.4 8.7-10.4 mg/dL Magnesium Level 2.2 1.6-2.6 mg/dL Total Bilirubin 0.6 0.2-1.0 mg/dL Aspartate Amino Transferase (AST) 17 13-40 U/L Alanine Aminotransferase (ALT) 23 7-40 U/L Alkaline Phosphatase 121 H 46-116 U/L Total Protein 6.8 5.7-8.2 g/dL Albumin 4.3 3.2-4.8 g/dL Triglycerides Level 86 < 150 mg/dL Cholesterol Level 146 < 200 mg/dL LDL Cholesterol 91 < 100 mg/dL HDL Cholesterol 37 L 40-59 mg/dL Thyroid Stimulating Hormone (TSH) 1.41 0.55-4.78 uIU/mL Troponin I High Sensitivity 17 </=54 ng/L Urine Color Colorless Yellow Urine Clarity Clear Clear Urine pH 7.0 5.0-9.0 Urine Specific [place] 1.011 1.001-1.035 Urine Protein Negative Negative Urine Ketones Negative Negative Urine Blood Negative Negative /uL Urine Nitrite Negative Negative Urine Bilirubin Negative Negative Urine Urobilinogen Normal Negative mg/dL Urine Leukocyte Esterase Negative Negative /uL Urine RBC 1 0 - 3 /hpf Urine WBC <1 0 - 3 /hpf Urine Squamous Epithelial Cells Few <5 /hpf Urine Bacteria None seen None Seen /hpf Urine Glucose Trace Normal mg/dL Urine Opiates Screen Neg NEGATIVE Urine Fentanyl Screen Neg NEGATIVE Urine Barbiturates Screen Neg NEGATIVE Urine Phencyclidine Screen Neg NEGATIVE Urine Amphetamines Screen Neg NEGATIVE Urine Benzodiazepines Screen Neg NEGATIVE Urine Cocaine Screen Neg NEGATIVE Urine Cannabinoids Screen Neg NEGATIVE B-Type Natriuretic Peptide 22.48 0-100 pg/mL Assessment Hypertensive urgency Rule out renal artery stenosis Type 2 diabetes mellitus, newly diagnosed Acute kidney injury, resolved Obesity Plan/Recommendation We will continue with following plan/recommendations (Dr. Sotomayor): * Echocardiogram to evaluate cardiac function * Aggressive BP control * Up-titrate dose as needed * Renal artery ultrasound * Risk factor modifications, counseled * Adherence to antihypertensive medication regimen Thank you for allowing us to care for this patient. Please call with any questions or concerns. Critical care time spent: 44 minutes This medical document was created using an electronic medical record system with voice recognition software and computerized dictation system. Although this document has been carefully reviewed, there might still be some phonetic and typographical errors. Occasional wrong-word or ``sound-alike substitutions may have occurred due to the inherent limitations of voice recognition software. These areas are purely typographical due to imperfections of the software programs and do not reflect any compromise in the patient's medical care. Hayley montes read the chart carefully and recognize, using context, where these substitutions have occurred. Plan discussed with: Patient Date of Service: May 07, 2024 Billing Provider: [facility] Common Codes: [id number] INP/OBS CARE (High) Cardiology Consultation Codes: [id number] CONSULT <45MIN FILIBERTO SOTOMAYOR MD 05/07/24 2329: Family History: Diabetes mellitus G8 MOTHER Hypertension G8 MOTHER Allergies: Coded Allergies: NO KNOWN ALLERGIES (Unverified , 06/29/21) Home Meds Active Scripts Acetaminophen (Acetaminophen) 500 Mg Tab, 500 MG PO QIDP, #30 TAB 0 Refills Prov:FORD ALCOCER 10/09/21 Sulfamethoxazole W/Trimethopri (Trimethoprim/Sulfamethoxa) 1 Tab Tab, 1 TAB PO BID for 7 Days, #14 TAB 0 Refills Prov:FORD ALCOCER 10/09/21 Azithromycin (Zithromax Z-Kenny) 250 Mg Tab, 250 MG PO UD for 5 Days, #6 TAB Prov:EAMON JAIN NP 07/01/21 Albuterol Sulfate (VENTOLIN MDI) 90 Mcg Ih, 180 MCG IN TIDPRN PRN for 30 Days, #1 INH Prov:EAMON JAIN NP 07/01/21 [facility] May 07, 2024 09:42 FILIBERTO SOTOMAYOR MD May 07, 2024 23:29
[2024-05-07] MEDS: NIFEdipine ER 30 MG TAB PO SCH (10:17)
[2024-05-07] MEDS: hydrALAZINE HCL 20 MG/ML VL IV PRN (11:14)
[2024-05-07] MEDS: cloNIDine HCL 0.1 MG TAB PO PRN (12:02)
[2024-05-07] MEDS: NIFEdipine ER 30 MG TAB PO ONE (13:30)
[2024-05-07 13:35] LABS: Urine Bacteria None Seen /hpf (None Seen)
[2024-05-07 14:03] LABS: Urine Blood Negative /uL (Negative); Urine Clarity Clear (Clear); Urine Color Light-Yellow (Yellow); Urine Protein, UAD Negative (Negative); Urine Specific Gravity 1.014 (1.001-1.035); Urine Urobilinogen Normal (Negative); Urine WBC 11 /hpf (0 - 3)
--- NOTE | 2024-05-07 17:55 | DVH ---
INDICATION: Renal artery stenosis TECHNIQUE: Multiple real-time sonographic images of the abdomen were obtained. COMPARISON: None FINDINGS: AORTA: 16 by 18 mm. PSV: 43 centimeters/second at the level of the renal artery. RIGHT KIDNEY:: 10.7 cm. EDV: 22.1 centimeters/second (normal less than 35 centimeters/second ) PSV: 67.1 centimeters/second (normal is less than 180 cm 2nd) EDV/PSV of the: 0.3 centimeters/second ) normal is greater than 0.2 centimeters/second ) RI: 0.67 (normal is less than 0.75) Renal SOB/ aorta PSV ratio (RAR) 1.6 (stenosis is 3.54 or above ) LEFT KIDNEY: 11 CM LONG EDV: 30.1 CENTIMETERS/SECOND ( NORMAL LESS THAN 35 CENTIMETERS/SECOND) SV: 93.4 CENTIMETERS/SECOND ) normal is less than 180 centimeters/second) EDV/PSV 0.3 centimeters/second (normal is greater than 0.2 centimeters/second ) RI: 0.68 ) normal is less than 0.75 ) Renal SV /aorta PSV ratio (RAR) 2.2 ) stenosis is 3.5 or above ) IMPRESSION: 1. Normal exam of the abdomen. No findings of renal artery stenosis on the right or left at this time . HS:Y
[2024-05-07 20:17] VITALS: PULSE 73; RESP 16; O2SAT 99
--- NOTE | 2024-05-07 21:44 | DVHPN2 ---
Subjective -05/07 patient asymptomatic sitting at bedside because lying down makes him uncomfortable, but no shortness of breath when he lays down. He does have pitting edema bilaterally, but no heart murmur. He feels asymptomatic. He does have some headaches intermittently. Endorses that he only came in because his family saw the high blood pressure on his mom's wrist blood pressure measuring device, he has not feeling asymptomatic for a long time. He does endorse she did have a health event at his new job which also showed elevated blood pressure. Reviewed: H&P Changes from previous H/P or p: No Changes General: Per HPI Cardiovascular: Other (Hypertension) Objective Vitals Vital Signs Date Time Temp Pulse Resp B/P (MAP) Pulse Ox O2 Delivery O2 Flow Rate FiO2 05/07/24 20:17 73 16 99 Nasal Cannula* 2 28 05/07/24 19:45 98.4 147/100 (116) 98.4 Intake/Output Intake and Output 05/07/24 07:00 Intake Total 525 ml Balance 525 ml Intake IV Total 525 ml Exam GEN: Healthy appearing, well-developed, NAD. HEENT: NC/AT; MMM. CV: RRR, no m/r/g. LUNGS: CTAB, no w/r/c. ABD: Soft, NT/ND, NBS, no masses or organomegaly. EXT: skin Warm, well perfused. no rashes. Pitting edema lower extremities bilaterally +1 NEURO: Ambulating with no limitations. No focal deficits. Medications Current Medications Medications Dose Ordered Sig/Elizabeth Route Start Time Stop Time Status Last Admin Dose Admin Hydralazine HCl 10 mg Q6HP PRN IV 05/06/24 22:30 05/07/24 11:14 10 MG Clonidine HCl 0.2 mg Q6HP PRN PO 05/06/24 22:30 05/07/24 12:02 0.2 MG Sodium Chloride 10 ml Q8HR IV 05/07/24 06:00 05/07/24 13:54 10 ML Acetaminophen/ Hydrocodone Bitart 1 tab Q4HP PRN PO 05/06/24 22:30 Ondansetron HCl 4 mg Q4HP PRN IV 05/06/24 22:30 Docusate Sodium 100 mg BIDPRN PRN PO 05/06/24 22:30 Acetaminophen 650 mg Q6HP PRN PO 05/06/24 22:30 Nitroglycerin 0.4 mg Q5MINP PRN SL 05/06/24 23:15 Morphine Sulfate 2 mg Q30M PRN IV 05/06/24 23:15 Nifedipine 90 mg DAILY PO 05/08/24 10:00 Carvedilol 6.25 mg Q12HR PO 05/07/24 22:00 Laboratory Results Laboratory Tests 05/07/24 04:12 Chemistry Test 05/07/24 04:12 Albumin 4.3 g/dL (3.2-4.8) Calcium Level 9.4 mg/dL (8.7-10.4) Magnesium Level 2.2 mg/dL (1.6-2.6) Total Protein 6.8 g/dL (5.7-8.2) Lipid panel Test 05/07/24 04:12 Cholesterol Level 146 mg/dL (< 200) HDL Cholesterol 37 mg/dL (40-59) L Triglycerides Level 86 mg/dL (< 150) LFT Test 05/07/24 04:12 Alanine Aminotransferase (ALT) 23 U/L (7-40) Alkaline Phosphatase 121 U/L (46-116) H Aspartate Amino Transferase (AST) 17 U/L (13-40) Total Bilirubin 0.6 mg/dL (0.2-1.0) HgA1c, TSH Test 05/07/24 04:12 Hemoglobin A1c 6.9 % A1C (<5.7) H Thyroid Stimulating Hormone (TSH) 1.41 uIU/mL (0.55-4.78) Urinalysis Test 05/07/24 09:03 Urine Color Light-yellow (Yellow) Urine Clarity Clear (Clear) Urine pH 7.0 (5.0-9.0) Urine Specific [place] 1.014 (1.001-1.035) Urine Protein Negative (Negative) Urine Ketones Negative (Negative) Urine Blood Negative /uL (Negative) Urine Nitrite Negative (Negative) Urine Bilirubin Negative (Negative) Urine Urobilinogen Normal mg/dL (Negative) Urine Leukocyte Esterase 1+ /uL (Negative) Urine RBC 1 /hpf (0 - 3) Urine WBC 11 /hpf (0 - 3) Urine Squamous Epithelial Cells Few /hpf (<5) Urine Bacteria None seen /hpf (None Seen) Urine Glucose 1+ mg/dL (Normal) H Labs and/or images reviewed: Labs reviewed by me, Image(s) reviewed by me Assessment/Plan Assessment/Plan -05/07 patient asymptomatic sitting at bedside because lying down makes him uncomfortable, but no shortness of breath when he lays down. He does have pitting edema bilaterally, but no heart murmur. He feels asymptomatic. He does have some headaches intermittently. Endorses that he only came in because his family saw the high blood pressure on his mom's wrist blood pressure measuring device, he has not feeling asymptomatic for a long time. He does endorse she did have a health event at his new job which also showed elevated blood pressure. Hypertensive emergency ELIAS Headaches -patient with history of multiple episodes of high blood pressure. Asymptomatic. Does have some elevated blood pressures with headaches. -CT head negative -started on p.o. antihypertensives. We will escalate as needed goal of SBP 140s. -med tele -cardiac diet Echo Headaches we will use p.r.n. Tylenol, ELIAS -Creatinine elevated - he renal artery duplex was negative - we will give fluid bolus and encourage p.o. hydration. Diet cardiac DVT prophylaxis-patient OB GI prophylaxis tolerating diet Med tele Plan discussed with: Patient Date of Service: May 07, 2024 Billing Provider: SANDY HAMMOND MD Common Visit Codes: [id number] INP/OBS CARE(HIGH) SADNY HAMMOND MD May 07, 2024 21:44
[2024-05-07] MEDS ORDERED: hydrALAZINE HCL 20 MG/ML VL IV PRN (21:45)
[2024-05-07] MEDS: CARVEDILOL 3.125 MG TAB PO SCH (22:00)
--- NOTE | 2024-05-07 23:29 | DVHINCON2 ---
Date Seen: May 07, 2024 Referring Physician FILI Bauman Reason for Consultation Hypertensive urgency History of Present Illness This is a 49-year-old male with a PMH of hypertension and Herron's palsy who presents to the ED with complaint of elevated blood pressure. Patient reports that he was at a local health clinic getting a physical done for a new job when the clinic staff told him his blood pressure was too high and that he needed to come to the emergency room. Upon emergency room arrival, the patient's blood pressure was noted to be at 240/141. Patient denies any cardiac symptoms A twelve lead electrocardiogram was ordered at time of assessment and reveals normal sinus rhythm with nonspecific ST segment depression to inferior leads. Initial troponin level of 16ng/L with flat trend thereafter. Patient denies taking any antihypertensive medications at home. Patient states he has not seen a primary care physician in over two years. Chest x-ray shows NAD. CT head showed no acute intracranial process. Patient was admitted to the hospital. I am asked to consult on this patient. Family History: Diabetes mellitus G8 MOTHER Hypertension G8 MOTHER Allergies: Coded Allergies: NO KNOWN ALLERGIES (Unverified , 06/29/21) Home Meds Active Scripts Acetaminophen (Acetaminophen) 500 Mg Tab, 500 MG PO QIDP, #30 TAB 0 Refills Prov:FORD ALCOCER 10/09/21 Sulfamethoxazole W/Trimethopri (Trimethoprim/Sulfamethoxa) 1 Tab Tab, 1 TAB PO BID for 7 Days, #14 TAB 0 Refills Prov:FORD ALCOCER 10/09/21 Azithromycin (Zithromax Z-Kenny) 250 Mg Tab, 250 MG PO UD for 5 Days, #6 TAB Prov:EAMON JAIN NP 07/01/21 Albuterol Sulfate (VENTOLIN MDI) 90 Mcg Ih, 180 MCG IN TIDPRN PRN for 30 Days, #1 INH Prov:EAMON JAIN ENDLESS TRACK VEHICLE MECHANIC 07/01/21 Current Medications Current Medications Medications (Trade) Dose Ordered Sig/Elizabeth Route PRN Reason Start Time Stop Time Status Last Admin Nicardipine HCl 250 ml @ 50 mls/hr Q5H IV 05/06/24 20:45 05/07/24 06:27 DC 05/07/24 02:15 Hydralazine HCl (Apresoline Injection) 10 mg Q6HP PRN IV SBP>150 05/06/24 22:30 11/22/24 11:14 Clonidine HCl (Catapres Tablet) 0.2 mg Q6HP PRN PO SBP>160 05/06/24 22:30 05/07/24 12:02 Metoprolol Tartrate (Lopressor Tablet) 75 mg BID PO 05/07/24 10:00 05/07/24 13:04 DC 05/07/24 09:38 Sodium Chloride (Saline Lock Ns) 10 ml Q8HR IV 05/07/24 06:00 05/07/24 13:54 Acetaminophen/ Hydrocodone Bitart ([place] 5/325MG Tab) 1 tab Q4HP PRN PO MODERATE PAIN (4-6 PAIN SCALE) 05/06/24 22:30 Ondansetron HCl (Zofran) 4 mg Q4HP PRN IV NAUSEA / VOMITING 05/06/24 22:30 Docusate Sodium (Colace Capsule) 100 mg BIDPRN PRN PO FOR CONSTIPATION 05/06/24 22:30 Acetaminophen (Tylenol Tablet) 650 mg Q6HP PRN PO PAIN SCALE 1-3 OR TEMP>100.4 05/06/24 22:30 Nitroglycerin (Ntrostat Sublingual) 0.4 mg Q5MINP PRN SL FOR CHEST PAIN 05/06/24 23:15 Morphine Sulfate 2 mg Q30M PRN IV FOR CHEST PAIN 05/06/24 23:15 Nifedipine (Procardia Xl (Time-Release)) 60 mg DAILY PO 05/07/24 10:00 05/07/24 12:58 DC 05/07/24 10:17 Nifedipine (Procardia Xl (Time-Release)) 90 mg DAILY PO 05/08/24 10:00 Carvedilol (Coreg Tablet) 6.25 mg Q12HR PO 05/07/24 22:00 Review of Systems Constitutional: No symptom reported Ears, Nose, & Throat: No symptom reported Eyes: No symptom reported Neurological: No symptoms reported Pulmonary/Respiratory: No symptoms reported Cardiovascular: No symptom reported Gastrointestinal: No symptom reported Genitourinary: No symptom reported Musculoskeletal: No symptom reported Skin: No symptom reported Psychiatric: No symptom reported Endocrine: No symptom reported Hematologic/Lymphatic: No symptom reported Vital Signs Vital Signs Date Time Temp Pulse Resp B/P (MAP) Pulse Ox O2 Delivery O2 Flow Rate FiO2 05/07/24 18:00 98.0 68 16 145/91 (109) 96 98.0 05/07/24 07:57 Nasal Cannula* 2 28 Physical Exam GENERAL: Awake, alert, oriented. Morbid obesity. LUNGS: Clear. CARDIOVASCULAR: Heart sounds are good. ABDOMEN: Soft. Labs/Diagnostic Data Labs Test 05/07/24 14:18 05/07/24 09:03 05/07/24 04:12 05/06/24 16:34 Range/Units Urine Color Light-yellow Yellow Urine Clarity Clear Clear Urine pH 7.0 5.0-9.0 Urine Specific [place] 1.014 1.001-1.035 Urine Protein Negative Negative Urine Ketones Negative Negative Urine Blood Negative Negative /uL Urine Nitrite Negative Negative Urine Bilirubin Negative Negative Urine Urobilinogen Normal Negative mg/dL Urine Leukocyte Esterase 1+ Negative /uL Urine RBC 1 0 - 3 /hpf Urine WBC 11 0 - 3 /hpf Urine Squamous Epithelial Cells Few <5 /hpf Urine Bacteria None seen None Seen /hpf Urine Glucose 1+ H Normal mg/dL White Blood Count 6.4 4.4-10.8 10^3/uL Red Blood Count 4.54 4.5-5.90 10^6/uL Hemoglobin 14.1 13.5-17.5 g/dL Hematocrit 42.0 41.0-53.0 % Mean Corpuscular Volume 92.6 80.0-100.0 fL Mean Corpuscular Hemoglobin 31.0 28.0-32.0 pg Mean Corpuscular Hemoglobin Concent 33.5 32.0-36.0 g/dL Red Cell Distribution Width 14.6 H 11.8-14.3 % Platelet Count 258 140-450 10^3/uL Mean Platelet Volume 9.2 6.9-10.8 fL Neutrophils (%) (Auto) 62.4 37.0-80.0 % Lymphocytes (%) (Auto) 26.9 10.0-50.0 % Monocytes (%) (Auto) 8.7 0.0-12.0 % Eosinophils (%) (Auto) 1.1 0.0-7.0 % Basophils (%) (Auto) 0.9 0.0-2.0 % Neutrophils # (Auto) 4.0 1.6-8.6 10 ^3/uL Lymphocytes # (Auto) 1.7 0.4-5.4 10 ^3/uL Monocytes # (Auto) 0.6 0-1.3 10 ^3/uL Eosinophils # (Auto) 0.1 0-0.8 10 ^3/uL Basophils # (Auto) 0.1 0-0.2 10 ^3/uL Nucleated Red Blood Cells 0.0 % Sodium Level 138 136-145 mmol/L Potassium Level 3.3 L 3.5-5.1 mmol/L Chloride Level 107 98-107 mmol/L Carbon Dioxide Level 22 20-31 mmol/L Anion Gap 9 5-15 Blood Urea Nitrogen 12 9-23 mg/dL Creatinine 1.12 0.700-1.30 mg/dL Glomerular Filtration Rate Calc 80 >90 mL/min BUN/Creatinine Ratio 10.7 10.0-20.0 Serum Glucose 199 H 74-106 mg/dL Hemoglobin A1c 6.9 H <5.7 % A1C Calcium Level 9.4 8.7-10.4 mg/dL Magnesium Level 2.2 1.6-2.6 mg/dL Total Bilirubin 0.6 0.2-1.0 mg/dL Aspartate Amino Transferase (AST) 17 13-40 U/L Alanine Aminotransferase (ALT) 23 7-40 U/L Alkaline Phosphatase 121 H 46-116 U/L Total Protein 6.8 5.7-8.2 g/dL Albumin 4.3 3.2-4.8 g/dL Triglycerides Level 86 < 150 mg/dL Cholesterol Level 146 < 200 mg/dL LDL Cholesterol 91 < 100 mg/dL HDL Cholesterol 37 L 40-59 mg/dL Thyroid Stimulating Hormone (TSH) 1.41 0.55-4.78 uIU/mL Troponin I High Sensitivity 17 </=54 ng/L Test 05/06/24 13:43 05/06/24 13:40 Range/Units Urine Opiates Screen Neg NEGATIVE Urine Fentanyl Screen Neg NEGATIVE Urine Barbiturates Screen Neg NEGATIVE Urine Phencyclidine Screen Neg NEGATIVE Urine Amphetamines Screen Neg NEGATIVE Urine Benzodiazepines Screen Neg NEGATIVE Urine Cocaine Screen Neg NEGATIVE Urine Cannabinoids Screen Neg NEGATIVE B-Type Natriuretic Peptide 22.48 0-100 pg/mL Assessment Hypertensive urgency. Rule out renal artery stenosis. Type 2 diabetes mellitus, newly diagnosed. Acute kidney injury, resolved. Obesity. Plan/Recommendation I agree with your ongoing assessment and care of plan. Patient has been seen by Beth Ramirez NP on my behalf, her and I discussed the plan with the patient. Echocardiogram to evaluate cardiac function. Aggressive BP control. Up-titrate dose as needed. Renal artery ultrasound. Risk factor modifications, counseled. Adherence to antihypertensive medication regimen. Additional plan as per the hospital course. Plan discussed with: Patient Date of Service: May 07, 2024 Billing Provider: FILIBERTO HADDAD MD Cardiology Common Codes: [id number] INP/OBS CARE (High) Cardiology Consultation Codes: [id number] CONSULT <45MIN FILIBERTO HADDAD MD May 07, 2024 18:16
[2024-05-08] VITALS: PULSE 77; RESP 20; O2SAT 98
[2024-05-08 01:00] VITALS: BP 158/90; PULSE 77; RESP 20; TEMP 98.6; O2SAT 96
--- NOTE | 2024-05-08 03:01 | DVHSR ---
APPROVED REPORT EXAM: Two-dimensional and M-mode echocardiogram with Doppler and color Doppler. Blood Pressure: 140/90 mmHg INDICATION Eval for cardiac function RISK FACTORS Height: 72, Weight: 275 DIMENSIONS LVDd4.7 (3.8-5.7cm)LA (2D)4.4 (1.9-4.0cm)Aortic Root4.0 (2.0-3.7cm) LVDs3.2 (2.5-4.0cm)LA (MM) (1.9-4.0cm)Aortic Cusp Exc2.4 (1.5-2.0cm) EF (%) 60.0 (55-70%)Rt. Atrium4.8 (1.9-4.0cm)Asc. Aorta cm IVSd1.6 (0.7-1.1cm)RV (D) (1.8-2.4cm) PWd1.7 (0.7-1.1cm) Mitral Valve MitralMitral Stenosis E wave0.61m/sMV Mean GR.mmHg A wave0.65m/sMV Peak GR.mmHg E/A ratio0.92D MVAcm2 DECEL [id number] 1/2 [id number] IVRTmsDop MVA3.13cm2 Aortic Valve Aortic ValveAortic Stenosis V11.15m/Yrn Mean GR.3mmHg V21.22m/Yrn Peak GR.6mmHg LVOT Diameter2.4 (1.8-2.4cm)Doppler AVA4.26cm2 Pulmonic Valve V20.68m/s Tricuspid Valve TR Velocity1.94m/s [id number] Other Information Technically limited study due to body habitus. Conclusion LV EJECTION FRACTION IS 70% NORMAL VALVES NO EFFUSION NORMAL RV FUNCTION IT IS NORMAL STUDY
[2024-05-08 05:00] VITALS: BP 133/65; PULSE 61; RESP 18; TEMP 98; O2SAT 98
[2024-05-08 07:06] LABS: Basophils # (auto) 0 10 ^3/uL (0-0.2); Basophils % (auto) 0.8 % (0.0-2.0); Eosinophils # (auto) 0.1 10 ^3/uL (0-0.8); Eosinophils % (auto) 1.7 % (0.0-7.0); Hematocrit 41.1 % (41.0-53.0); Hemoglobin 13.9 g/dL (13.5-17.5); Lymphocytes # (auto) 1.8 10 ^3/uL (0.4-5.4); Lymphocytes % (auto) 28.4 % (10.0-50.0); Mean Corpuscular Hemoglobin 31.2 pg (28.0-32.0); Mean Corpuscular Hgb Conc. 33.7 g/dL (32.0-36.0); Mean Corpuscular Volume 92.4 fL (80.0-100.0); Monocytes # (auto) 0.7 10 ^3/uL (0-1.3); Monocytes % (auto) 10.5 % (0.0-12.0); Neutrophils # (auto) 3.7 10 ^3/uL (1.6-8.6); Neutrophils % (auto) 58.6 % (37.0-80.0); Nucleated Red Blood Cells % 0.2 %; Platelet Count (auto) 265 10^3/uL (140-450); Red Blood Cells 4.45 10^6/uL (4.5-5.90); Red Cell Distribution Width 15.1 % (11.8-14.3); White Blood Cell 6.2 10^3/uL (4.4-10.8)
[2024-05-08 07:19] LABS: Alanine Aminotransferase 20 U/L (7-40); Alkaline Phosphatase 109 U/L (46-116); Anion Gap 8 (5-15); Aspartate Aminotransferase 13 U/L (13-40); BUN/Creatinine Ratio 15.6 (10.0-20.0); Bilirubin, Total 0.6 mg/dL (0.2-1.0); Blood Urea Nitrogen 17 mg/dL (9-23); Calcium 9.5 mg/dL (8.7-10.4); Carbon Dioxide 21 mmol/L (20-31); Chloride 110 mmol/L (98-107); Glucose 128 mg/dL (74-106); Potassium 3.9 mmol/L (3.5-5.1); Sodium 139 mmol/L (136-145); Total Protein 6.4 g/dL (5.7-8.2)
[2024-05-08 08:00] VITALS: PULSE 82; RESP 20; O2SAT 97
[2024-05-08] MEDS ORDERED: NIFE90TA75 PO (08:51)
[2024-05-08] MEDS ORDERED: CARV6.2551 PO (08:51)
[2024-05-08] MEDS ORDERED: HYDR12.59 PO (08:51)
[2024-05-08] MEDS ORDERED: HYDR-2792 PO (08:51)
--- NOTE | 2024-05-08 08:58 | DVHDS2 ---
Discharge Summary Date of Admission May 06, 2024 at 23:03 Date of Discharge: May 08, 2024 Labs/Diagnostic Data: Laboratory Results Test 05/08/24 06:38 05/07/24 14:18 05/07/24 09:03 05/07/24 04:12 White Blood Count 6.2 10^3/uL (4.4-10.8) Red Blood Count 4.45 10^6/uL (4.5-5.90) Hemoglobin 13.9 g/dL (13.5-17.5) Hematocrit 41.1 % (41.0-53.0) Mean Corpuscular Volume 92.4 fL (80.0-100.0) Mean Corpuscular Hemoglobin 31.2 pg (28.0-32.0) Mean Corpuscular Hemoglobin Concent 33.7 g/dL (32.0-36.0) Red Cell Distribution Width 15.1 % (11.8-14.3) Platelet Count 265 10^3/uL (140-450) Mean Platelet Volume 8.9 fL (6.9-10.8) Neutrophils (%) (Auto) 58.6 % (37.0-80.0) Lymphocytes (%) (Auto) 28.4 % (10.0-50.0) Monocytes (%) (Auto) 10.5 % (0.0-12.0) Eosinophils (%) (Auto) 1.7 % (0.0-7.0) Basophils (%) (Auto) 0.8 % (0.0-2.0) Neutrophils # (Auto) 3.7 10 ^3/uL (1.6-8.6) Lymphocytes # (Auto) 1.8 10 ^3/uL (0.4-5.4) Monocytes # (Auto) 0.7 10 ^3/uL (0-1.3) Eosinophils # (Auto) 0.1 10 ^3/uL (0-0.8) Basophils # (Auto) 0 10 ^3/uL (0-0.2) Nucleated Red Blood Cells 0.2 % Sodium Level 139 mmol/L (136-145) Potassium Level 3.9 mmol/L (3.5-5.1) Chloride Level 110 mmol/L (98-107) Carbon Dioxide Level 21 mmol/L (20-31) Anion Gap 8 (5-15) Blood Urea Nitrogen 17 mg/dL (9-23) Creatinine 1.09 mg/dL (0.700-1.30) Glomerular Filtration Rate Calc 83 mL/min (>90) BUN/Creatinine Ratio 15.6 (10.0-20.0) Serum Glucose 128 mg/dL (74-106) Calcium Level 9.5 mg/dL (8.7-10.4) Total Bilirubin 0.6 mg/dL (0.2-1.0) Aspartate Amino Transferase (AST) 13 U/L (13-40) Alanine Aminotransferase (ALT) 20 U/L (7-40) Alkaline Phosphatase 109 U/L (46-116) Total Protein 6.4 g/dL (5.7-8.2) Albumin 4.0 g/dL (3.2-4.8) Urine Color Light-yellow (Yellow) Urine Clarity Clear (Clear) Urine pH 7.0 (5.0-9.0) Urine Specific [place] 1.014 (1.001-1.035) Urine Protein Negative (Negative) Urine Ketones Negative (Negative) Urine Blood Negative /uL (Negative) Urine Nitrite Negative (Negative) Urine Bilirubin Negative (Negative) Urine Urobilinogen Normal mg/dL (Negative) Urine Leukocyte Esterase 1+ /uL (Negative) Urine RBC 1 /hpf (0 - 3) Urine WBC 11 /hpf (0 - 3) Urine Squamous Epithelial Cells Few /hpf (<5) Urine Bacteria None seen /hpf (None Seen) Urine Glucose 1+ mg/dL (Normal) Hemoglobin A1c 6.9 % A1C (<5.7) Magnesium Level 2.2 mg/dL (1.6-2.6) Triglycerides Level 86 mg/dL (< 150) Cholesterol Level 146 mg/dL (< 200) LDL Cholesterol 91 mg/dL (< 100) HDL Cholesterol 37 mg/dL (40-59) Thyroid Stimulating Hormone (TSH) 1.41 uIU/mL (0.55-4.78) Test 05/06/24 16:34 05/06/24 13:43 05/06/24 13:40 Troponin I High Sensitivity 17 ng/L (</=54) Urine Opiates Screen Neg (NEGATIVE) Urine Fentanyl Screen Neg (NEGATIVE) Urine Barbiturates Screen Neg (NEGATIVE) Urine Phencyclidine Screen Neg (NEGATIVE) Urine Amphetamines Screen Neg (NEGATIVE) Urine Benzodiazepines Screen Neg (NEGATIVE) Urine Cocaine Screen Neg (NEGATIVE) Urine Cannabinoids Screen Neg (NEGATIVE) B-Type Natriuretic Peptide 22.48 pg/mL (0-100) Other Laboratory Tests 05/08/24 06:38 Brief Hx & Hospital Course: 49-year-old male with past medical history of Herron's palsy and hypertension who presented to [facility] ED with complaint of elevated blood pressure. Patient denies history of hypertension, asymptomatic, but present today with elevated blood pressure, associated headache, not in any medication at this time. He feels asymptomatic. He does have some headaches intermittently. Endorses that he only came in because his family saw the high blood pressure on his mom's wrist blood pressure measuring device, he has not feeling asymptomatic for a long time. He does endorse she did have a health event at his new job which also showed elevated blood pressure. He does have pitting edema bilaterally, but no heart murmur. no rales. On admit blood pressure 213/120 trending down to 192/112. Head CT showed no acute intracranial process. Patient was started on nicardipine drip transiently but controlled quickly. he is observed overnight with no FND. Chest x-ray is unconcerning. Echocardiogram is done and shows preserved ejection fraction 70%. he does have ELIAS with renal artery duplex unconcerning, this resolved with BP control and small IVF bolus. On day 2 blood pressure is controlled with p.o. antihypertensives and outpatient follow up plan is developed as below. diagnosis: hypertensive emergency, HFpEF, ELIAS discharge plan: - start procardia 90mg mornings - start coreg 6.25mg twice daily (morning + night) - start hctz 12.5 mg nightly - LOW SALT diet (almost all fastfoods have high salt) - take hydralazine 10mg as needed for systolic BP >170 (upto x3, atleast 1 hr apart) - f/u with DC clinic. record BP every morning and night (bring this record to DC clinic and PCP). DC clinic will repeat BMP (follow Cr, ensure kidneys stablize; and no severe electrolyte changes from hctz) - f/u with PCP - PCP will adjust medications to goal BP dose. will need follow HFpEF (may need jardiance) and ELIAS Cr. - continue other home medications not mentioned above. stop any unnecessary Antibiotics. Visitation and planning required 35 minutes Condition at Discharge: Fair Final Diagnosis/Problems List hypertensive emergency, HFpEF, ELIAS Discharge Disposition: Home Discharge Instruct/Medications Diet: Cardiac 2g Na,low cholest Activity: No Restrictions, As Tolerated Follow Up/Referral: [facility] Medications: as below Discharge Statement: "Patient was advised to return to the ER or call 911 if any headaches, dizziness, shortness of breath, chest pain, abdominal pain, bleeding, fevers, or worsening of medical condition. Patient was counseled about treatment plan, medications, possible side effects, patientverbalized understanding. All questions were answered to the best of my ability. This discharge took greater then 30 minutes in planning, reviewing documentation, counseling the patient, and discussing with other team members." ASSESSMENT ASSESSMENT Assessment hypertensive emergency, HFpEF, ELIAS Date of Service: May 08, 2024 Billing Provider: SANDY HAMMOND MD Common Visit Codes: 37594-UPJ/OBS DISCH DAY >30min SANDY HAMMOND MD May 08, 2024 08:58
[2024-05-08 09:00] VITALS: BP 133/83; PULSE 72; RESP 20; TEMP 97.5; O2SAT 97
[2024-05-08 09:11] VITALS: BP 158/90; PULSE 77; TEMP 36.7
[2024-05-08] MEDS: NIFEdipine ER 30 MG TAB PO SCH (09:39)
--- NOTE | 2024-05-08 20:34 | DVHPN2 ---
Progress Note - Dictate Date Seen: May 08, 2024 Medical Necessity Reason Pt with a Central, PICC or Fol: No Subjective Patient was seen and evaluated in follow-up. Patient denies any current complaints. Patient's BP has improved. Echocardiogram showed an EF of 70%. vital signs Vital Sign Date Time Temp Pulse Resp B/P (MAP) Pulse Ox O2 Delivery O2 Flow Rate FiO2 05/08/24 09:39 133/83 05/08/24 09:38 72 05/08/24 09:11 36.7 05/08/24 09:00 20 97 05/08/24 08:00 Room Air* 0 21 Total Intake and Output 05/07/24 05/07/24 05/08/24 15:00 23:00 07:00 Intake Total 0 ml Balance 0 ml objective GENERAL: Awake, alert, oriented. Morbid obesity. LUNGS: Clear. CARDIOVASCULAR: Heart sounds are good. ABDOMEN: Soft. laboratory and microbiology Laboratory Tests 05/08/24 06:38 Test 05/08/24 06:38 Range/Units Serum Glucose 128 H 74-106 mg/dL Problem List Hypertensive urgency. Rule out renal artery stenosis. Type 2 diabetes mellitus, newly diagnosed. Acute kidney injury, resolved. Obesity. Assessment/Plan Continued all current supportive medical care. Coreg, Clonidine, Nifedipine. Morphine for pain management. Additional plan as per the hospital course. Plan discussed with: Patient FILIBERTO HADDAD MD May 08, 2024 14:25
--- NOTE | 2024-05-10 09:19 | ECG ---
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
== END 2024-05-08 11:25 | disposition home or self-care (01) | DRG 199 ==
LOC: ER 13:05 → TELE 23:03 → TELE-CENTR 05-07 23:52
PROVIDERS: ADMIT Nurse Practitioner Family; ATTEND Student in an Organized Health Care Education/Training Program
DX: I16.1 Hypertensive emergency (principal); N17.9 Acute kidney failure, unspecified; I50.32 Chronic diastolic (congestive) heart failure; I11.0 Hypertensive heart disease with heart failure; E11.9 Type 2 diabetes mellitus without complications; E66.01 Morbid (severe) obesity due to excess calories; G51.0 Bell's palsy; Z82.49 Family history of ischemic heart disease and other diseases of the circulatory system; Z83.3 Family history of diabetes mellitus; Z68.35 Body mass index [BMI] 35.0-35.9, adult
CPT/HCPCS: 36415; 70450; 71045; 80053; 80061; 80307; 81001; 83036; 83735; 83835; 83880; 84443; 84484; 85025; 93005; 93306; 93975; 96374; 96375; 96376; 99291; G0378